=== PATIENT | female | born 1965 | race Caucasian/White ===

== ENCOUNTER 2017-10-17 10:11 | Inpatient (IN) | payer MEDICARE ==
[2017-10-17] VITALS (7 sets, daily range): BP systolic 98–112; BP diastolic 65–79
[~2017-10-17] VITALS: Ht 165.1 cm; Wt 96.4 kg
[2017-10-17] MEDS ORDERED: TRAM50TA2 PO (10:29)
[2017-10-17] MEDS ORDERED: FENO160T PO (10:29)
[2017-10-17] MEDS ORDERED: LOSA50TA6 PO (10:29)
[2017-10-17] MEDS ORDERED: LEVO88TA4 PO (10:29)
[2017-10-17] MEDS ORDERED: CLON0.5T11 PO (10:29)
[2017-10-17] MEDS ORDERED: METO50TA82 PO (10:29)
[2017-10-17] MEDS ORDERED: ESCI20TA PO (10:29)
[2017-10-17] MEDS ORDERED: PLEASE ENTER WEIGHT MC SCH (10:30)
[2017-10-17] MEDS ORDERED: SODIUM CHLORIDE FLUSH 10ML SYR IVF ONE (10:30)
[2017-10-17] MEDS ORDERED: METOPROLOL 1 MG/ML, 5ML IVPush PRN (10:30)
[2017-10-17] MEDS ORDERED: NITROGLYCERIN SINGLE TAB 0.4 MG SL PRN (10:30)
[2017-10-17] MEDS ORDERED: ASPI-496 PO (10:38)
[2017-10-17 10:43] LABS: BASOPHILS # (AUTO) 0.02 x10^3/uL (0-0.1); BASOPHILS % (AUTO) 0 % (0-1); EOSINOPHILS # (AUTO) 0.07 x10^3/uL (0-0.4); EOSINOPHILS % (AUTO) 1 % (1-7); LYMPHOCYTES # (AUTO) 2.08 x10^3/uL (1-3.4); LYMPHOCYTES % (AUTO) 30 % (22-44); MD NO; MEAN CORPUSCULAR HEMOGLOBIN 31.8 pg (27.0-34.8); MEAN CORPUSCULAR HGB CONC 34.3 g/dL (32.4-35.8); MEAN CORPUSCULAR VOLUME 92.7 fL (80-100); MEAN PLATELET VOLUME 8.5 fL (7.4-10.4); MONOCYTES # (AUTO) 0.32 x10^3/uL (0.2-0.8); MONOCYTES % (AUTO) 5 % (2-9); NEUTROPHILS # (AUTO) 4.39 x10^3/uL (1.8-6.8); NEUTROPHILS % (AUTO) 64 % (42-75); PLATELET COUNT 373 x10^3/uL (130-400); RED BLOOD COUNT 4.56 x10^6/uL (3.82-5.3); RED CELL DISTRIBUTION WIDTH 12.9 % (9.6-15.2)
[2017-10-17] MEDS ORDERED: METOPROLOL 1 MG/ML, 5ML ONE (10:43)
[2017-10-17 10:52] LABS: INTERNATIONAL NORMALIZED RATIO 1.02 (0.93-1.1); PROTHROMBIN TIME 10.5 Seconds (9.6-11.5)
[2017-10-17 10:53] LABS: ALBUMIN 4.4 g/dL (3.4-5.0); ANION GAP 11 mmol/L (5-15); CALCIUM 9.4 mg/dL (8.5-10.1); CHLORIDE 100 mmol/L (98-107); CREATININE 1.17 mg/dL (0.55-1.02)
[2017-10-17 10:57] LABS: TROPONIN I < 0.015 ng/mL (0.000-0.045)
[2017-10-17] MEDS ORDERED: HEPARIN 25,000 UNITS/500ML PMX 500 ML IV PRN ×3 (12:30→23:00)
[2017-10-17] MEDS ORDERED: SODIUM CHLORIDE FLUSH 10ML SYR IVF PRN (12:30)
[2017-10-17] MEDS ORDERED: HEPARIN 5,000 UNITS/ML, 1ML IV PRN (12:30)
[2017-10-17] MEDS ORDERED: HEPARIN 5,000 UNITS/ML, 1ML IV ONE (12:30)
[2017-10-17] MEDS ORDERED: ACETAMINOPHEN 325 MG TABLET PO PRN (14:00)
[2017-10-17] MEDS: TRAMADOL MC SCH ×2 (14:30→22:30)
[2017-10-17] MEDS ORDERED: DEXTROSE 50%, 50ML SYRINGE IVPush PRN (14:30)
[2017-10-17] MEDS ORDERED: DEXTROSE 4 GM TAB.CHEW PO PRN (14:30)
[2017-10-17] MEDS ORDERED: GLUCAGON 1 MG IM PRN (14:30)
[2017-10-17 14:38] LABS: FREE T4 (FREE THYROXINE) 0.94 ng/dL (0.76-1.46); THYROID STIMULATING HORMONE 1.12 mIU/L (0.358-3.740)
[2017-10-17 14:41] LABS: HEMOGLOBIN A1C 6.9 % (4.2-6.3)
[2017-10-17 17:17] LABS: TROPONIN I < 0.015 ng/mL (0.000-0.045)
[2017-10-17] MEDS: INSULIN LISPRO 100 UNITS/ML, PEN SQ-INSULIN SCH ×2 (18:04→20:45)
[2017-10-17 20:14] LABS: AMPHETAMINE SCREEN, URINE Negative (Negative); BARBITURATE SCREEN, URINE Negative (Negative); BENZODIAZEPINE SCREEN, URINE Negative (Negative); CANNABINOID SCREEN, URINE Negative (Negative); COCAINE SCREEN, URINE Negative (Negative); METHADONE SCREEN, URINE Negative (Negative); OPIATE SCREEN, URINE Negative (Negative)
[2017-10-17] MEDS: METOPROLOL TARTRATE 50 MG TABLET PO SCH (20:43)
[2017-10-17] MEDS: SODIUM CHLORIDE FLUSH 10ML SYR IVF SCH (20:46)
[2017-10-17] MEDS ORDERED: METOPROLOL TARTRATE 50 MG TABLET PO SCH (21:00)
[2017-10-17] MEDS: HEPARIN 5,000 UNITS/ML, 1ML IV PRN (23:15)
[2017-10-18 02:07] VITALS: BP 110/71
[2017-10-18 02:16] VITALS: BP 108/77
[2017-10-18 02:19] VITALS: BP 106/73
[2017-10-18 03:45] LABS: BASOPHILS # (AUTO) 0.03 x10^3/uL (0-0.1); BASOPHILS % (AUTO) 0 % (0-1); EOSINOPHILS # (AUTO) 0.15 x10^3/uL (0-0.4); EOSINOPHILS % (AUTO) 2 % (1-7); LYMPHOCYTES # (AUTO) 2.79 x10^3/uL (1-3.4); LYMPHOCYTES % (AUTO) 37 % (22-44); MD NO; MEAN CORPUSCULAR HEMOGLOBIN 32.6 pg (27.0-34.8); MEAN CORPUSCULAR HGB CONC 34.5 g/dL (32.4-35.8); MEAN CORPUSCULAR VOLUME 94.6 fL (80-100); MEAN PLATELET VOLUME 8.6 fL (7.4-10.4); MONOCYTES # (AUTO) 0.56 x10^3/uL (0.2-0.8); MONOCYTES % (AUTO) 8 % (2-9); NEUTROPHILS # (AUTO) 4.03 x10^3/uL (1.8-6.8); NEUTROPHILS % (AUTO) 53 % (42-75); PLATELET COUNT 307 x10^3/uL (130-400); RED BLOOD COUNT 4.02 x10^6/uL (3.82-5.3); RED CELL DISTRIBUTION WIDTH 12.6 % (9.6-15.2)
[2017-10-18 03:56] LABS: ALBUMIN 3.6 g/dL (3.4-5.0); ANION GAP 6 mmol/L (5-15); CHLORIDE 103 mmol/L (98-107)
[2017-10-18 04:03] LABS: ALANINE AMINOTRANSFERASE 90 U/L (12-78); ALKALINE PHOSPHATASE 88 U/L (45-117); BILIRUBIN,TOTAL 0.2 mg/dL (0.2-1.0); CALCIUM 8.9 mg/dL (8.5-10.1); CHOLESTEROL, TOTAL 191 mg/dL (140-239); CREATININE 1.04 mg/dL (0.55-1.02); HDL CHOL % 13 % (28-40); HDL CHOLESTEROL (DIRECT) 24 mg/dL (40-60); TOTAL PROTEIN 6.8 g/dL (6.4-8.2); TRIGLYCERIDES 574 mg/dL (50-200)
[2017-10-18] MEDS: LEVOTHYROXINE 88 MCG TABLET PO SCH (05:08)
[2017-10-18] MEDS: TRAMADOL MC SCH ×3 (06:30→21:42)
[2017-10-18] MEDS: METOPROLOL TARTRATE 50 MG TABLET PO SCH ×2 (08:01→21:42)
[2017-10-18] MEDS: CITALOPRAM 20 MG TABLET PO SCH (08:01)
[2017-10-18] MEDS: ASPIRIN 81 MG TABLET EC PO SCH (08:02)
[2017-10-18] MEDS: SODIUM CHLORIDE FLUSH 10ML SYR IVF SCH ×2 (08:03→21:46)
[2017-10-18] MEDS: INSULIN LISPRO 100 UNITS/ML, PEN SQ-INSULIN SCH ×4 (08:11→22:00)
[2017-10-18] MEDS ORDERED: FENOFIBRATE 145 MG TABLET PO SCH (09:00)
[2017-10-18 09:22] VITALS: BP 102/69
[2017-10-18] MEDS ORDERED: GADOBUTROL 7.5 MMOL/7.5 ML PFS ONE (10:07)
[2017-10-18] MEDS: HEPARIN 5,000 UNITS/ML, 1ML IV PRN (11:09)
[2017-10-18] MEDS: SODIUM CHLORIDE 0.9% 1,000 ML IV SCH ×2 (11:15→21:40)
[2017-10-18 14:52] VITALS: BP 93/65
[2017-10-18 19:46] VITALS: BP 109/72
[2017-10-18] MEDS ORDERED: ATORVASTATIN 40 MG TABLET PO SCH (21:00)
[2017-10-19 02:07] VITALS: BP 99/66
[2017-10-19 04:52] LABS: BASOPHILS # (AUTO) 0.05 x10^3/uL (0-0.1); BASOPHILS % (AUTO) 1 % (0-1); EOSINOPHILS # (AUTO) 0.14 x10^3/uL (0-0.4); EOSINOPHILS % (AUTO) 2 % (1-7); LYMPHOCYTES # (AUTO) 2.49 x10^3/uL (1-3.4); LYMPHOCYTES % (AUTO) 36 % (22-44); MD NO; MEAN CORPUSCULAR HEMOGLOBIN 32.3 pg (27.0-34.8); MEAN CORPUSCULAR VOLUME 95.1 fL (80-100); MEAN PLATELET VOLUME 8.5 fL (7.4-10.4); MONOCYTES # (AUTO) 0.51 x10^3/uL (0.2-0.8); MONOCYTES % (AUTO) 7 % (2-9); NEUTROPHILS # (AUTO) 3.74 x10^3/uL (1.8-6.8); NEUTROPHILS % (AUTO) 54 % (42-75); PLATELET COUNT 294 x10^3/uL (130-400); RED BLOOD COUNT 4.09 x10^6/uL (3.82-5.3); RED CELL DISTRIBUTION WIDTH 13.2 % (9.6-15.2)
[2017-10-19] MEDS: HEPARIN 5,000 UNITS/ML, 1ML IV PRN (05:52)
[2017-10-19] MEDS: TRAMADOL MC SCH ×2 (05:53→12:20)
[2017-10-19] MEDS: LEVOTHYROXINE 88 MCG TABLET PO SCH (05:53)
[2017-10-19 06:23] LABS: ALANINE AMINOTRANSFERASE 82 U/L (12-78); ALBUMIN 3.7 g/dL (3.4-5.0); ANION GAP 7 mmol/L (5-15); CALCIUM 8.7 mg/dL (8.5-10.1); CHLORIDE 109 mmol/L (98-107); CREATININE 0.78 mg/dL (0.55-1.02)
[2017-10-19 06:26] LABS: ALKALINE PHOSPHATASE 73 U/L (45-117); BILIRUBIN,TOTAL 0.2 mg/dL (0.2-1.0); TOTAL PROTEIN 6.9 g/dL (6.4-8.2)
[2017-10-19] MEDS: INSULIN LISPRO 100 UNITS/ML, PEN SQ-INSULIN SCH ×3 (07:00→16:00)
[2017-10-19] MEDS: METOPROLOL TARTRATE 50 MG TABLET PO SCH (09:03)
[2017-10-19] MEDS: ASPIRIN 81 MG TABLET EC PO SCH (09:03)
[2017-10-19] MEDS: CITALOPRAM 20 MG TABLET PO SCH (09:03)
[2017-10-19] MEDS: SODIUM CHLORIDE FLUSH 10ML SYR IVF SCH (09:03)
[2017-10-19 09:05] VITALS: BP 114/78
[2017-10-19 12:15] LABS: INTERNATIONAL NORMALIZED RATIO 1.03 (0.93-1.1); PROTHROMBIN TIME 10.6 Seconds (9.6-11.5)
[2017-10-19] MEDS ORDERED: WARFARIN 7.5 MG TABLET PO-COUM ONE ×2 (13:51→18:00)
[2017-10-19 14:24] VITALS: BP 126/73
[2017-10-19] MEDS ORDERED: ATOR40TA78 PO (16:22)
[2017-10-19] MEDS ORDERED: METO50TA82 PO (16:22)
[2017-10-19] MEDS ORDERED: WARF-36 PO (16:22)
[2017-10-19] MEDS ORDERED: METF500T5 PO (16:36)
== END 2017-10-19 18:02 | disposition home or self-care (01) | DRG 309 ==
LOC: ED 12:01 → 5SO 12:02 → ED 12:33
PROVIDERS: ADMIT Internal Medicine; ATTEND Internal Medicine
DX: I48.0 Paroxysmal atrial fibrillation (principal); N17.9 Acute kidney failure, unspecified; E87.1 Hypo-osmolality and hyponatremia; I10 Essential (primary) hypertension; E78.5 Hyperlipidemia, unspecified; I25.119 Atherosclerotic heart disease of native coronary artery with unspecified angina pectoris; K76.0 Fatty (change of) liver, not elsewhere classified; E03.9 Hypothyroidism, unspecified; R63.5 Abnormal weight gain; R73.9 Hyperglycemia, unspecified; Z82.49 Family history of ischemic heart disease and other diseases of the circulatory system; Z83.3 Family history of diabetes mellitus; Z87.891 Personal history of nicotine dependence; Z95.5 Presence of coronary angioplasty implant and graft; I25.2 Old myocardial infarction; Z95.818 Presence of other cardiac implants and grafts; Z98.82 Breast implant status; Z87.81 Personal history of (healed) traumatic fracture; Z68.35 Body mass index [BMI] 35.0-35.9, adult
CPT/HCPCS: 36415; 70553; 71045; 76700; 80048; 80053; 80061; 80307; 82040; 82962; 83036; 83735; 83880; 84100; 84439; 84443; 84484; 85025; 85520; 85610; 85730; 93005; 93306; 93880; 99291; A9585; J1644; J1815; J7030

== ENCOUNTER → 2017-12-11 | Outpatient (CLI) | payer MEDICARE ==
[~2017-12-11] MED LIST: ASPI-496 PO; ATOR40TA78 PO; CLON0.5T11 PO; ESCI20TA PO; FENO160T PO; LEVO88TA4 PO; LOSA50TA7 PO; METF500T17 PO; METO50TA82 PO; TRAM50TA2 PO; WARF-36 PO
== END | disposition home or self-care (01) ==
LOC: CFH 09:43
PROVIDERS: ATTEND Nurse Practitioner Family
DX: Z12.31 Encounter for screening mammogram for malignant neoplasm of breast (principal)
CPT/HCPCS: 77063; 77067

== ENCOUNTER → 2017-12-14 | Outpatient (CLI) | payer MEDICARE ==
[2017-12-14 12:42] LABS: ANION GAP 9 mmol/L (5-15); CALCIUM 8.8 mg/dL (8.5-10.1); CHLORIDE 101 mmol/L (98-107)
[2017-12-14 12:48] LABS: ALANINE AMINOTRANSFERASE 118 U/L (12-78); ALBUMIN 3.9 g/dL (3.4-5.0); ALKALINE PHOSPHATASE 141 U/L (45-117); BILIRUBIN,TOTAL 0.3 mg/dL (0.2-1.0); CHOL/HDL RATIO 4.1; CHOLESTEROL, TOTAL 126 mg/dL (140-239); CREATININE 0.73 mg/dL (0.55-1.02); HDL CHOL % 25 % (28-40); HDL CHOLESTEROL (DIRECT) 31 mg/dL (40-60); LDL CHOLESTEROL,CALCULATED 40 mg/dL (54-169); LDL/HDL RATIO 1.3 (0.5-3.0); TOTAL PROTEIN 7.9 g/dL (6.4-8.2); TRIGLYCERIDES 276 mg/dL (50-200); VLDL CHOLESTEROL 55 mg/dL (0-25)
[2017-12-14 12:49] LABS: BILIRUBIN, DIRECT < 0.1 mg/dL (0.1-0.2)
== END | disposition home or self-care (01) ==
LOC: CFH 08:56
PROVIDERS: ATTEND Nurse Practitioner Family
DX: E78.5 Hyperlipidemia, unspecified (principal); R74.8 Abnormal levels of other serum enzymes
CPT/HCPCS: 36415; 80053; 80061; 82248; 86704; 86706; 86708; 86803; 87340

== ENCOUNTER → 2018-02-24 | Outpatient (CLI) | payer MEDICARE ==
[~2018-02-24] MED LIST changes: +ACET325T14 PO; +CLON1TAB11 PO; +FISH1CAP PO; +FLAX10004 PO; +MULT-658 PO; +OMNIPAQUE 350 MG/ML, 150 ML BOTTLE ONE; +milk thistle PO
== END | disposition home or self-care (01) ==
LOC: CFH 09:20
PROVIDERS: ATTEND Internal Medicine Cardiovascular Disease
DX: I48.91 Unspecified atrial fibrillation (principal)
CPT/HCPCS: 71046; 75572; 82565; Q9967

== ENCOUNTER 2018-02-26 08:14 | Observation (INO) | payer MEDICARE ==
[2018-02-24 11:48] VITALS: BP 108/76
[2018-02-24 12:17] LABS: BASOPHILS # (AUTO) 0.03 x10^3/uL (0-0.1); BASOPHILS % (AUTO) 0 % (0-1); EOSINOPHILS % (AUTO) 1 % (1-7); LYMPHOCYTES % (AUTO) 34 % (22-44); MD NO; MEAN CORPUSCULAR HGB CONC 34.1 g/dL (32.4-35.8); MEAN CORPUSCULAR VOLUME 93.8 fL (80-100); MEAN PLATELET VOLUME 8.8 fL (7.4-10.4); MONOCYTES # (AUTO) 0.44 x10^3/uL (0.2-0.8); MONOCYTES % (AUTO) 6 % (2-9); NEUTROPHILS # (AUTO) 4.43 x10^3/uL (1.8-6.8); NEUTROPHILS % (AUTO) 58 % (42-75); PLATELET COUNT 332 x10^3/uL (130-400); RED BLOOD COUNT 4.49 x10^6/uL (3.82-5.3); RED CELL DISTRIBUTION WIDTH 13.2 % (9.6-15.2)
[2018-02-24 12:25] LABS: ALANINE AMINOTRANSFERASE 99 U/L (12-78); ALBUMIN 4.2 g/dL (3.4-5.0); ANION GAP 8 mmol/L (5-15); CALCIUM 8.9 mg/dL (8.5-10.1); CHLORIDE 103 mmol/L (98-107); INTERNATIONAL NORMALIZED RATIO 2.55 (0.93-1.1); PROTHROMBIN TIME 26.1 Seconds (9.6-11.5)
[2018-02-24 12:28] LABS: ALKALINE PHOSPHATASE 89 U/L (45-117); BILIRUBIN,TOTAL 0.3 mg/dL (0.2-1.0); CREATININE 1.09 mg/dL (0.55-1.02); TOTAL PROTEIN 7.8 g/dL (6.4-8.2)
[~2018-02-26] VITALS: Ht 165.1 cm; Wt 91.4 kg
[~2018-02-26 08:14] MED LIST changes: -ACET325T14 PO; -OMNIPAQUE 350 MG/ML, 150 ML BOTTLE ONE
[2018-02-26] MEDS ORDERED: SODIUM CHLORIDE 0.9% 1,000 ML IV SCH (08:23)
[2018-02-26 09:14] LABS: INTERNATIONAL NORMALIZED RATIO 2.25 (0.93-1.1); PROTHROMBIN TIME 23.1 Seconds (9.6-11.5)
[2018-02-26] MEDS ORDERED: MIDAZOLAM 1 MG/ML, 2ML ONE (09:55)
[2018-02-26] MEDS ORDERED: PROPOFOL 50 ML ONE (09:55)
[2018-02-26] MEDS ORDERED: FENTANYL PF 250 MCG/5ML ONE (09:55)
[2018-02-26] MEDS ORDERED: ISOPROTERENOL 0.2MG/ML, 5ML ONE (09:59)
[2018-02-26] MEDS ORDERED: LIDOCAINE 1%, 20ML ONE (09:59)
[2018-02-26] MEDS ORDERED: PROTAMINE SULFATE 10 MG/ML, 5ML ONE (09:59)
[2018-02-26] MEDS ORDERED: DEXAMETHASONE 4 MG/ML, 1ML ONE (10:12)
[2018-02-26] MEDS ORDERED: GLYCOPYRROLATE 0.2MG/1ML, 5ML ONE (10:12)
[2018-02-26] MEDS ORDERED: NEOSTIGMINE 1 MG/ML, 10ML ONE (10:12)
[2018-02-26] MEDS ORDERED: ALBUTEROL SULFATE 200 PUFFS/8.5 GR INH ONE (10:12)
[2018-02-26] MEDS ORDERED: ROCURONIUM 10 MG/ML,10ML ONE (10:12)
[2018-02-26] MEDS ORDERED: LIDOCAINE-MPF 2% ,5ML ONE (10:12)
[2018-02-26] MEDS ORDERED: HEPARIN 1,000 UNITS/ML, 10ML ONE (10:12)
[2018-02-26] MEDS ORDERED: ONDANSETRON 2MG/ML, 2ML ONE (10:12)
[2018-02-26] MEDS ORDERED: ZOLPIDEM 5MG TABLET PO PRN (13:30)
[2018-02-26] MEDS ORDERED: ACETAMINOPHEN 325 MG TABLET PO PRN (14:00)
[2018-02-26] MEDS ORDERED: ONDANSETRON 2MG/ML, 2ML IV PRN (14:00)
[2018-02-26] MEDS ORDERED: OXYcodone 5 MG/5 ML ORAL.SOL UDC PO PRN (14:00)
[2018-02-26] MEDS ORDERED: EPHEDRINE 50 MG/ML, 1ML IM PRN (14:00)
[2018-02-26] MEDS ORDERED: PROMETHAZINE 25 MG/ML, 1ML IV PRN (14:00)
[2018-02-26] MEDS ORDERED: MORPHINE SULFATE 4 MG/ML, 1ML IVPush PRN (14:00)
[2018-02-26] MEDS ORDERED: DIPHENHYDRAMINE 50 MG/ML, 1ML IVPush PRN (14:00)
[2018-02-26] MEDS ORDERED: MEPERIDINE/PF 25MG/0.5ML IVPush PRN (14:00)
[2018-02-26] MEDS ORDERED: ONDANSETRON ODT 8 MG PO PRN (14:00)
[2018-02-26] MEDS ORDERED: MIDAZOLAM 1 MG/ML, 2ML IV PRN (14:00)
[2018-02-26] MEDS ORDERED: PROMETHAZINE 25 MG SUPP PR PRN (14:00)
[2018-02-26] MEDS ORDERED: ALBUTEROL/IPRATROPIUM 2.5MG/0.5MG, 3 ML NPPB PRN (14:00)
[2018-02-26] MEDS ORDERED: FENTANYL PF 100 MCG/2ML IV PRN (14:00)
[2018-02-26] MEDS ORDERED: EPHEDRINE 50 MG/ML, 1ML IVPush PRN (14:00)
[2018-02-26 15:58] VITALS: BP 91/61
[2018-02-26] MEDS ORDERED: WARFARIN 7.5 MG TABLET PO-COUM ONE (18:00)
[2018-02-26] MEDS: ACETAMINOPHEN 325 MG TABLET PO PRN ×2 (18:20→23:58)
[2018-02-26] MEDS: metFORMIN 500 MG TABLET PO SCH (20:26)
[2018-02-26] MEDS: METOPROLOL TARTRATE 50 MG TABLET PO SCH (20:26)
[2018-02-26 20:32] VITALS: BP 111/74
[2018-02-26] MEDS ORDERED: ATORVASTATIN 40 MG TABLET PO SCH (21:00)
[2018-02-27 01:21] VITALS: BP 114/77
[2018-02-27] MEDS ORDERED: TRAM50TA2 PO (01:37)
[2018-02-27 05:28] LABS: INTERNATIONAL NORMALIZED RATIO 2.54 (0.93-1.1)
[2018-02-27] MEDS ORDERED: LEVOTHYROXINE 88 MCG TABLET PO SCH (06:00)
[2018-02-27] MEDS ORDERED: ACET325T14 PO (07:53)
[2018-02-27 08:00] VITALS: BP 128/87
[2018-02-27] MEDS: metFORMIN 500 MG TABLET PO SCH (08:24)
[2018-02-27] MEDS: METOPROLOL TARTRATE 50 MG TABLET PO SCH (08:25)
[2018-02-27] MEDS ORDERED: FENOFIBRATE 145 MG TABLET PO SCH (09:00)
[2018-02-27] MEDS ORDERED: CITALOPRAM 20 MG TABLET PO SCH (09:00)
[2018-02-27] MEDS ORDERED: WARFARIN SODIUM PO SCH (09:00)
[2018-02-27] MEDS ORDERED: MULTIVITAMIN 1 TABLET PO SCH (09:00)
[2018-02-27] MEDS ORDERED: LOSARTAN 50MG TABLET PO SCH (09:00)
[2018-02-27] MEDS ORDERED: TEMPLATE NON-FORMULARY MED. (Flaxseed Oil 1,000 MG) PO SCH (09:00)
[2018-02-27] MEDS ORDERED: ASPIRIN 81 MG TABLET CHEW PO SCH (09:00)
[2018-02-27] MEDS ORDERED: OMEGA-3/FISH OIL CAPSULE PO SCH (09:00)
[2018-02-27] MEDS ORDERED: WARFARIN 5 MG TABLET PO-COUM SCH (18:00)
== END 2018-02-27 11:57 | disposition home or self-care (01) ==
LOC: CACL 08:14 → ORIP 13:20 → 5SO 15:47
PROVIDERS: ADMIT Internal Medicine Cardiovascular Disease; ATTEND Internal Medicine Cardiovascular Disease
DX: I48.91 Unspecified atrial fibrillation (principal); Z79.01 Long term (current) use of anticoagulants
CPT/HCPCS: 36415; 80053; 82962; 85025; 85347; 85610; 85730; 93308; 93312; 93321; 93325; 93613; 93623; 93656; 93662; C1730; C1732; C1759; C1766; C1893; C1894; G0378; J1100; J1644; J2250; J2405; J2704; J2710; J2720; J3010; J3490

== ENCOUNTER → 2018-04-12 | Outpatient (CLI) | payer MEDICARE ==
[~2018-04-12] MED LIST changes: +ACET325T14 PO; +LOSA50TA14 PO; -LOSA50TA7 PO
[2018-04-12 10:48] LABS: INTERNATIONAL NORMALIZED RATIO 1.15 (0.93-1.1); PROTHROMBIN TIME 12.1 Seconds (9.6-11.5)
== END | disposition home or self-care (01) ==
LOC: CFH 10:06
PROVIDERS: ATTEND Nurse Practitioner Family
DX: Z01.812 Encounter for preprocedural laboratory examination (principal)
CPT/HCPCS: 36415; 85610

== ENCOUNTER → 2018-05-28 | Outpatient (CLI) | payer MEDICARE ==
[2018-05-28 12:42] LABS: BASOPHILS # (AUTO) 0.02 x10^3/uL (0-0.1); BASOPHILS % (AUTO) 0 % (0-1); EOSINOPHILS # (AUTO) 0.11 x10^3/uL (0-0.4); EOSINOPHILS % (AUTO) 2 % (1-7); LYMPHOCYTES # (AUTO) 2.11 x10^3/uL (1-3.4); LYMPHOCYTES % (AUTO) 34 % (22-44); MD NO; MEAN CORPUSCULAR HEMOGLOBIN 31.1 pg (27.0-34.8); MEAN CORPUSCULAR HGB CONC 33.6 g/dL (32.4-35.8); MEAN CORPUSCULAR VOLUME 92.4 fL (80-100); MEAN PLATELET VOLUME 8.8 fL (7.4-10.4); MONOCYTES # (AUTO) 0.33 x10^3/uL (0.2-0.8); MONOCYTES % (AUTO) 5 % (2-9); NEUTROPHILS % (AUTO) 58 % (42-75); PLATELET COUNT 333 x10^3/uL (130-400); RED BLOOD COUNT 4.51 x10^6/uL (3.82-5.3); RED CELL DISTRIBUTION WIDTH 13.5 % (9.6-15.2)
[2018-05-28 12:46] LABS: ALBUMIN 4.2 g/dL (3.4-5.0); ANION GAP 3 mmol/L (5-15); CALCIUM 8.9 mg/dL (8.5-10.1); CHLORIDE 104 mmol/L (98-107)
[2018-05-28 12:56] LABS: ALANINE AMINOTRANSFERASE 99 U/L (12-78); ALKALINE PHOSPHATASE 88 U/L (45-117); BILIRUBIN,TOTAL 0.4 mg/dL (0.2-1.0); CHOLESTEROL, TOTAL 154 mg/dL (140-239); CREATININE 0.89 mg/dL (0.55-1.02); HDL CHOL % 20 % (28-40); HDL CHOLESTEROL (DIRECT) 31 mg/dL (40-60); LDL CHOLESTEROL,CALCULATED 67 mg/dL (54-169); LDL/HDL RATIO 2.2 (0.5-3.0); T4 (THYROXINE) 11.5 mcg/dL (4.8-13.9); THYROID STIMULATING HORMONE 0.687 mIU/L (0.358-3.740); TOTAL PROTEIN 8.1 g/dL (6.4-8.2); TRIGLYCERIDES 278 mg/dL (50-200); VLDL CHOLESTEROL 56 mg/dL (0-25)
== END | disposition home or self-care (01) ==
LOC: LAB 09:08
PROVIDERS: ATTEND Nurse Practitioner Family
DX: I10 Essential (primary) hypertension (principal); E11.9 Type 2 diabetes mellitus without complications; E78.5 Hyperlipidemia, unspecified; E03.9 Hypothyroidism, unspecified; I25.2 Old myocardial infarction
CPT/HCPCS: 36415; 80053; 80061; 83036; 84436; 84443; 84481; 85025